=== PATIENT | female | born 1975 | race African-American/Black ===

== ENCOUNTER → 2017-01-15 | Outpatient (CLI) | payer BC ==
[~2017-01-15] MED LIST: ACETAMINOPHEN500 M5 PO; BACLOFEN10 MG PO; CENTURY ULTIMA1 EAC3 PO; LORTAB 7.5-5001 TAB PO; NO MEDICATIONS; ORTHO EVRA1 PATCH.WK TOP; VOLTAREN75 MG PO
--- NOTE | ~2017-01-15 | CR63 ---
[facility] A Service of [facility] RADIOLOGY TEXT RESULTS PATIENT: MOON SALEH LOCATION: [facility] : [birth year] UNIT #: [id number] AGE: [address]: Ammon Huerta MD SEX: F ORDER DR: [id number] [facility] [address] [place], [place] [address] [id number] O MR#: [id number] Acc #: [id number] NAME: MOON SALEH : 1975 SEX: F STUDY DATE/TIME: 01/15/2017 7:59 UNIT: [facility] ROOM: STUDY DESCRIPTION: CR Chest 2 View Attending Physician: Ammon Huerta M.D. Referring Physician: Ammon Huerta M.D. Ordering Physician: Ammon Huerta M.D. Primary Care Physician: Angelic Muñoz M.D. MEDICAL IMAGING REPORT This report is preliminary unless electronic signature is present EXAM Chest x-ray, 01/15. INDICATION Preoperative exam for gastric band placement. Morbid obesity. Some shortness of air. COMPARISON None FINDINGS PA and lateral examination of the chest upright shows a good expansion of the parenchyma with a normal distribution of the pulmonary vascularity. There is no indication of congestion, effusion, infiltrate, tumor, or nodular density. The pleural reflections and diaphragmatic contours are normal. The cardiac silhouette and mediastinal anatomy is within normal limits. IMPRESSION Normal chest. Dictated by... Devyn Molina Jr., M.D. THIS IS AN ELECTRONICALLY VERIFIED REPORT Devyn Molina Jr., M.D. at 01/15/2017 3:53 PM TANIA/harvinder TD: 01/15/2017 10:56 JOB #: [id number] [facility] A Service of [facility] RADIOLOGY TEXT RESULTS PATIENT: MOON SALEH LOCATION: [facility] : [birth year] UNIT #: [id number] AGE: [address]: Ammon Huerta MD SEX: F ORDER DR: MEDICAL IMAGING REPORT Page 1 of 1 COPY
--- NOTE | ~2017-01-15 | EKG ---
PATIENT: MOON SALEH UNIT #: [id number] Ventricular Rate: 66 BPM Atrial Rate: 66 BPM P-R Interval: 166 ms QRS Duration: 76 ms Q-T Interval: 382 ms QTC Calculation(Bezet): 400 ms P [place]: 49 degrees Calculated R [place]: 5 degrees Calculated T [place]: 11 degrees Diagnosis Line: Normal sinus rhythm Diagnosis Line: Normal ECG Diagnosis Line: No previous ECGs available Diagnosis Line: Confirmed by RENA SANCHEZ MD ([id number]) on Diagnosis Line: 01/16/2017 1:38:28 PM INTERPRETING MD: CHELY
--- NOTE | ~2017-01-15 | CR97 ---
[facility] A Service of [facility] RADIOLOGY TEXT RESULTS PATIENT: MOON SALEH LOCATION: [facility] : [birth year] UNIT #: [id number] AGE: [address]: Ammon Huerta MD SEX: F ORDER DR: [id number] [facility] [address] [place], [place] [address] [id number] O MR#: [id number] Acc #: [id number] NAME: MOON SALEH : 1975 SEX: F STUDY DATE/TIME: 01/15/2017 8:48 UNIT: [facility] ROOM: STUDY DESCRIPTION: CR Esophagram Attending Physician: Ammon Huerta M.D. Referring Physician: Ammon Huerta M.D. Ordering Physician: Ammon Huerta M.D. Primary Care Physician: Angelic Muñoz M.D. MEDICAL IMAGING REPORT This report is preliminary unless electronic signature is present EXAM Barium esophagram. INDICATION Morbid obesity. Preop for Lap-Band surgery. TECHNIQUE The fluoroscopy time is 0.4 minutes. 16 fluoroscopic images were taken. FINDINGS There are mild tertiary contractions. No evidence for hiatal hernia or reflux. IMPRESSION Mild tertiary contractions, otherwise unremarkable. Dictated by... Reinaldo Verdugo M.D. THIS IS AN ELECTRONICALLY VERIFIED REPORT Reinaldo Verdugo M.D. at 01/15/2017 4:51 PM ALBAN/harvinder TD: 01/15/2017 16:36 JOB #: [id number] MEDICAL IMAGING REPORT Page 1 of 1 COPY
[2017-01-15 09:51] LABS: HEMATOCRIT 37.7 % (35.0-45.0); HEMOGLOBIN 12.2 gm/dL (12.0-16.0); MEAN CORPUSCULAR HEMOGLOBIN 27.6 PG (28-34); MEAN CORPUSCULAR HGB CONC 32.5 g/dL (30-36); MEAN PLATELET VOLUME 8.9 FL (6.5-11.5); RED BLOOD COUNT 4.43 X10e (3.90-5.30); RED CELL DISTRIBUTION WIDTH 14.8 % (11.0-15.5); WHITE BLOOD COUNT 7.3 X10e3 (4.0-10.5)
[2017-01-15 10:40] LABS: BILIRUBIN,TOTAL 1.1 mg/dL (0.2-2.0); BUN/CREATININE RATIO 13.33; CALCIUM SERUM 9.8 mg/dL (8.4-10.2); CREATININE SERUM 0.6 mg/dL (0.6-1.4); GLOM FILT RATE Estimated 132.1 mL/min (>60); POTASSIUM 3.6 mmol/L (3.5-5.1)
== END | disposition home or self-care (01) ==
LOC: CRAD 07:47 → CAMB 09:00
PROVIDERS: Surgery
DX: Z01.818 Encounter for other preprocedural examination (principal); K44.9 Diaphragmatic hernia without obstruction or gangrene; E66.01 Morbid (severe) obesity due to excess calories; K22.8 Other specified diseases of esophagus
CPT/HCPCS: 36415; 71020; 74220; 80053; 80061; 84443; 85027; 93005

== ENCOUNTER → 2017-01-27 | Day surgery (SDC) | payer BC ==
--- NOTE | ~2017-01-27 | CR7 ---
[facility] A Service of [facility] RADIOLOGY TEXT RESULTS PATIENT: MOON SALEH LOCATION: [facility] : 77 UNIT #: [id number] AGE: [address]: Ammon Huerta MD SEX: F ORDER DR: [id number] [facility] [address] [place], [place] [address] [id number] O MR#: [id number] Acc #: [id number] NAME: MOON SALEH : 1975 SEX: F STUDY DATE/TIME: 01/27/2017 10:24 UNIT: [facility] ROOM: STUDY DESCRIPTION: CR Abdomen Single AP View Attending Physician: Ammon Huerta M.D. Ordering Physician: Ammon Huerta M.D. Primary Care Physician: Fannie Diaz M.D. MEDICAL IMAGING REPORT This report is preliminary unless electronic signature is present EXAM Supine radiograph of the abdomen, 01/27/2017. HISTORY Postop Lap-Band PACU front. FINDINGS AP radiograph of the left hemiabdomen presented. Right hemiabdomen and upper most abdomen not entirely included on field of view. Patient is status post Lap-Band device placement. The band component is at anticipated location of gastroesophageal junction based on esophagram dated 01/15/2017. Band component [id number] 63 degrees from vertical. Catheter component incompletely visualized. Visualized portion intact. Port component implanted over the left hemiabdomen. Probable prior cholecystectomy. Visualized bowel gas pattern normal. No free air. Degenerative changes lower lumbar spine. Dictated by... Ammon Saucedo M.D. THIS IS AN ELECTRONICALLY VERIFIED REPORT Ammon Saucedo M.D. at 01/28/2017 6:12 PM KENDELL/harvinder TD: 01/27/2017 11:21 JOB #: [id number] MEDICAL IMAGING REPORT Page 1 of 1 COPY
--- NOTE | ~2017-01-27 | OR ---
Unit #: [id number] #: [id number] Patient: MOON SALEH [id number] [address] [address] [id number] O MR#: [id number] NAME: MOON SALEH ROOM: Date of Procedure: 01/27/2017 Admission Date: 01/27/2017 Surgeon: Ammon Huerta M.D. : 1975 Attending Physician: Ammon Huerta M.D. Primary Care Physician: Fannie Diaz M.D. OPERATIVE REPORT PREOPERATIVE DIAGNOSIS Chronic morbid obesity, BMI of 39. POSTOPERATIVE DIAGNOSES 1. Chronic morbid obesity, BMI of 39. 2. Paraesophageal hiatal hernia. PROCEDURES PERFORMED 1. Laparoscopic adjustable gastric band. 2. Laparoscopic paraesophageal hiatal hernia repair. ASSISTANT Hector Nieves M.D. ANESTHESIA General endotracheal anesthesia. ESTIMATED BLOOD LOSS Minimal. IV FLUIDS 800 crystalloid. COMPLICATIONS None. INDICATIONS FOR PROCEDURE The patient is a 41-year-old with chronic morbid obesity. DESCRIPTION OF PROCEDURE The patient was taken to the operating room and placed in supine position. General anesthesia was induced. The abdomen was prepped and draped. A 3-cm incision was then made left of the midline. A 10-mm Visiport was then placed intraabdominal under direct vision. The abdomen was insufflated to 15 mmHg with CO2. The patient was then placed in a steep reversed Trendelenburg. General inspection of the abdomen revealed what appeared to be a paraesophageal hernia. This was identified with a defect at the diaphragm using anterior palpation with the instrument. We then made a small incision in the subxiphoid region. A Tonie liver retractor was then placed intraabdominal and used to retract the left lobe of the liver upward to further expose the paraesophageal hernia and GE junction. I then placed a 5-mm port in the right upper quadrant, a 10-mm Unit #: [id number] #: [id number] Patient: MOON SALEH port in the left upper quadrant, and another 5-mm port in the left lower quadrant. The stomach was retracted medial and downward. Upon retracting the stomach, we took down the paraesophageal ligament, exposing the right and left blanca at the paraesophageal hernia. Any hernia sac was reduced. We then repaired the paraesophageal hernia using interrupted #0 Ethibond sutures in a [id number] type fashion. This formed a snug repair to the anterior esophagus. We then retracted the stomach medially and further exposed the angle of His using Bovie electrocautery. The stomach was then retracted laterally. We then took down the hepatogastric ligament with Bovie electrocautery. This exposed the right blanca. Using blunt dissection, I created a retrogastric tunnel from this point to the angle of His. The band was then placed intraabdominal through the 10-mm port site. This was then brought through the retrogastric tunnel in a pars flaccida technique. The band was then closed anteriorly to form a 20-mL to 25-mL anterior gastric pouch. The fundus was then secured to the anterior pouch to prevent movement around the stomach using two interrupted #0 Ethibond sutures. A third suture was then used as a gathering stitch from the lesser curve to the anterior stomach, gathering and imbricating the remaining fundus of the stomach. The tubing was then brought out through the midline 10-mm port site. All ports and the Tonie liver retractor were removed under direct vision with no evidence of abdominal hemorrhage. A polypropylene mesh was then secured to the posterior face of the laparoscopic band port. This was secured using #0 Ethibond suture. This was then cut to shape. The port was then connected to the tubing and placed into a subcutaneous pocket just anterior to the rectus sheath. Its position was then confirmed. All tubing was then placed intraabdominal. The wounds were then closed with interrupted 4-0 Vicryl. The patient tolerated the procedure well and was sent to the recovery room in good condition. Dictated by... Maylin Bojorquez/orly TD: 01/27/2017 16:37 JOB #: [id number] OPERATIVE REPORT Page 1 of 1 X Ammon Huerta MD PROCEDURE OPERATIVE NOTE
== END | disposition home or self-care (01) ==
LOC: CSUR 06:49
DX: E66.01 Morbid (severe) obesity due to excess calories (principal); K44.9 Diaphragmatic hernia without obstruction or gangrene; Z68.39 Body mass index [BMI] 39.0-39.9, adult; Z86.32 Personal history of gestational diabetes; Z80.0 Family history of malignant neoplasm of digestive organs; Z88.6 Allergy status to analgesic agent; Z72.4 Inappropriate diet and eating habits; Z79.891 Long term (current) use of opiate analgesic; Z79.899 Other long term (current) drug therapy; Z90.49 Acquired absence of other specified parts of digestive tract; Z90.721 Acquired absence of ovaries, unilateral; Z98.51 Tubal ligation status; Z98.890 Other specified postprocedural states
CPT/HCPCS: 74000; 84703; C1781; J0330; J0690; J1650; J1885; J2250; J2405; J2710; J3010